=== PATIENT | female | born 1940 | race Two or more races ===

== ENCOUNTER 2022-08-28 09:57 | Outpatient (CLI) | payer OTHER | END 2022-08-28 10:04 | disposition home or self-care (01) | LOC: SONOGRAMA 09:57 | PROVIDERS: ATTEND Pathology Anatomic Pathology & Clinical Pathology | DX: D34 Benign neoplasm of thyroid gland (principal); D04.9 Carcinoma in situ of skin, unspecified; E04.2 Nontoxic multinodular goiter; E06.5 Other chronic thyroiditis ==